=== PATIENT | female | born 1935 | race African-American/Black ===

== ENCOUNTER → 2017-06-27 | Outpatient (CLI) | payer MEDICARE, BC ==
[~2017-06-27] MED LIST: [UNRECOGNIZED DRUG - REMARK]
[2017-06-27 09:05] LABS: BASOPHILS % 0.4 % (0.0-2.0); EOSINOPHILS % 2.1 % (0.0-5.0); HEMATOCRIT. 40.8 % (36.0-48.0); HEMOGLOBIN. 13.6 g/dL (12.0-16.0); LYMPHOCYTES % 21.7 % (20.0-50.0); MEAN CORPUSCULAR HEMOGLOBIN 28.8 pg (28.0-32.0); MEAN CORPUSCULAR VOLUME 86.6 fL (81.0-99.0); MEAN PLATELET VOLUME 7.8 fl (7.4-10.4); MONOCYTES % 3.8 % (2.0-8.0); PLATELET 203 x1000/uL (130-400); RED BLOOD CELL COUNT 4.71 mill/uL (4.2-5.4)
[2017-06-27 09:40] LABS: CARBON DIOXIDE 28 mEq/L (21-32); CHLORIDE 107 mEq/L (98-107); HDL CHOLESTEROL 75 mg/dL (40-59); LDL CHOLESTEROL 107 mg/dL (5-100)
== END | disposition home or self-care (01) ==
LOC: LAB 08:35
PROVIDERS: ATTEND Internal Medicine
DX: Z01.818 Encounter for other preprocedural examination (principal); H25.22 Age-related cataract, morgagnian type, left eye; R94.31 Abnormal electrocardiogram [ECG] [EKG]
CPT/HCPCS: 36415; 80053; 80061; 82306; 85025; 93005

== ENCOUNTER 2017-07-04 21:17 | Emergency (ER) | payer BC, MEDICARE ==
[~2017-07-04] VITALS: Ht 157.5 cm; Wt 76.0 kg
[2017-07-05 00:35] VITALS: BP 171/77
== END 2017-07-05 02:07 | disposition home or self-care (01) ==
LOC: ER 21:17
DX: I10 Essential (primary) hypertension (principal); I49.1 Atrial premature depolarization; Z90.5 Acquired absence of kidney
CPT/HCPCS: 93005; 99283

== ENCOUNTER 2017-08-29 20:27 | Emergency (ER) | payer BC, MEDICARE ==
[~2017-08-29] VITALS: Ht 157.5 cm; Wt 82.0 kg
[2017-08-29 22:04] LABS: BASOPHILS % 0.3 % (0.0-2.0); EOSINOPHILS % 2.4 % (0.0-5.0); HEMATOCRIT. 43.2 % (36.0-48.0); HEMOGLOBIN. 13.9 g/dL (12.0-16.0); LYMPHOCYTES % 11.9 % (20.0-50.0); MEAN CORPUSCULAR HEMOGLOBIN 28.2 pg (28.0-32.0); MEAN CORPUSCULAR VOLUME 87.7 fL (81.0-99.0); MEAN PLATELET VOLUME 8.3 fl (7.4-10.4); MONOCYTES % 5.1 % (2.0-8.0); NEUTROPHILS % 80.3 % (40.0-76.0); PLATELET 205 x1000/uL (130-400); RED BLOOD CELL COUNT 4.92 mill/uL (4.2-5.4); RED CELL DISTRIBUTION WIDTH 13.7 % (11.6-14.6)
[2017-08-29 23:02] VITALS: BP 134/80
== END 2017-08-29 23:03 | disposition home or self-care (01) ==
LOC: ER 20:27
DX: E16.2 Hypoglycemia, unspecified (principal); I10 Essential (primary) hypertension
CPT/HCPCS: 36415; 71045; 80048; 82962; 85025; 93005; 99285

== ENCOUNTER 2019-05-23 03:23 | Emergency (ER) | payer BC, MEDICARE, OTHER ==
[~2019-05-23] VITALS: Ht 157.5 cm; Wt 75.0 kg
[2019-05-23 06:58] LABS: BASOPHILS % 0.4 % (0.0-2.0); CHLORIDE 111 mEq/L (98-107); EOSINOPHILS % 3.1 % (0.0-5.0); HEMATOCRIT. 42.8 % (36.0-48.0); HEMOGLOBIN. 14.2 g/dL (12.0-16.0); LYMPHOCYTES % 24.9 % (20.0-50.0); MEAN CORPUSCULAR HEMOGLOBIN 28.6 pg (28.0-32.0); MEAN CORPUSCULAR VOLUME 86.4 fL (81.0-99.0); MEAN PLATELET VOLUME 8.7 fl (7.4-10.4); MONOCYTES % 4.7 % (2.0-8.0); NEUTROPHILS % 66.9 % (40.0-76.0); PLATELET 187 x1000/uL (130-400); RED BLOOD CELL COUNT 4.96 mill/uL (4.2-5.4); RED CELL DISTRIBUTION WIDTH 14.2 % (11.6-14.6)
[2019-05-23 07:41] VITALS: BP 160/59
== END 2019-05-23 07:45 | disposition home or self-care (01) ==
LOC: ER 03:23
DX: I10 Essential (primary) hypertension (principal); Z90.5 Acquired absence of kidney
CPT/HCPCS: 36415; 93005; 99283

== ENCOUNTER 2019-09-23 13:38 | Emergency (ER) | payer OTHER ==
[~2019-09-23] VITALS: Ht 158.8 cm; Wt 82.0 kg
[2019-09-23 14:00] VITALS: BP 164/76
[2019-09-23] MEDS ORDERED: ACETAMINOPHEN 500MG TABLET PO ONE (16:15)
== END 2019-09-23 17:23 | disposition home or self-care (01) ==
LOC: ER 14:13
DX: M25.571 Pain in right ankle and joints of right foot (principal); I10 Essential (primary) hypertension; Z98.890 Other specified postprocedural states
CPT/HCPCS: 73610; 99283